=== PATIENT | male | born 1995 | race Caucasian/White ===

== ENCOUNTER 2017-08-09 02:26 | Emergency (ER) | payer OTHER ==
[~2017-08-09] VITALS: Ht 185.4 cm; Wt 63.5 kg
[2017-08-09] MEDS ORDERED: NYQUIL (02:41)
[2017-08-09] MEDS ORDERED: IBUPROFEN 200200 M1 PO (02:41)
[2017-08-09] MEDS ORDERED: KEFLEX500 M1 PO (02:47)
[2017-08-09 03:46] VITALS: BP 120/76
== END 2017-08-09 07:25 | disposition home or self-care (01) ==
LOC: ER 02:26
DX: S41.111A Laceration without foreign body of right upper arm, initial encounter (principal); Z88.4 Allergy status to anesthetic agent; X99.1XXA Assault by knife, initial encounter; Y93.89 Activity, other specified; Y92.89 Other specified places as the place of occurrence of the external cause; Y99.8 Other external cause status

== ENCOUNTER 2018-11-16 21:18 | Emergency (ER) | payer OTHER ==
[~2018-11-16] VITALS: Ht 182.9 cm; Wt 68.0 kg
[~2018-11-16 21:18] MED LIST: IBUPROFEN 200200 M1 PO; KEFLEX500 M1 PO; NYQUIL
[2018-11-16 22:13] LABS: URINE BILIRUBIN NEGATIVE (Negative); URINE BLOOD NEGATIVE (Negative); URINE CLARITY CLEAR; URINE COLOR YELLOW; URINE GLUCOSE-RANDOM* NEGATIVE (Negative); URINE KETONES NEGATIVE (Negative); URINE LEUKOCYTES NEGATIVE (Negative); URINE NITRITE NEGATIVE (Negative); URINE PROTEIN (DIPSTICK) NEGATIVE (Negative); URINE UROBILINOGEN 0.2 E.U./dl (0.2-1.0)
[2018-11-16 22:20] LABS: ABSOLUTE NEUTROPHILS 3.8 thou/uL (1.4-8.2); BASOPHILS 0.9 % (0.0-2.0); EOSINOPHILS 1.3 % (0.0-3.0); HEMATOCRIT 42.7 % (42.0-52.0); HEMOGLOBIN 14.8 gm/dL (14.0-18.0); LYMPHOCYTES 42.7 % (24.0-44.0); MCH 31.8 pg (26.0-34.0); MCHC 34.8 g/dL (28.0-37.0); MCV 91.5 fL (80.0-100.0); MONOCYTES 9.6 % (1.0-8.0); PLATELET COUNT 241 thou/uL (150-400); POLYS 45.5 % (36.0-66.0); RBC 4.66 mil/uL (4.50-6.00); RDW 13.9 % (10.5-14.5); WBC 8.3 thou/uL (4.0-11.0)
[2018-11-16 22:31] LABS: CALCIUM 9.2 mg/dL (8.5-10.1); CREATININE 0.8 mg/dL (0.7-1.3); POTASSIUM 3.5 mmol/L (3.5-5.1)
[2018-11-16 22:35] LABS: ALBUMIN 3.9 g/dL (3.4-5.0); TOTAL BILIRUBIN 0.5 mg/dL (<0.1-1.0); TOTAL PROTEIN 7.7 g/dL (6.4-8.2)
[2018-11-17] MEDS ORDERED: ZOFRAN ODT4 MG PO (01:23)
[2018-11-17] MEDS ORDERED: BENTYL 20 MG TA20 M1 PO (01:23)
[2018-11-17] MEDS ORDERED: HYDROCODONE-AP1 EAC6 PO (01:23)
[2018-11-17 01:30] VITALS: BP 99/60
== END 2018-11-17 01:50 | disposition home or self-care (01) ==
LOC: ER 21:18
PROVIDERS: Emergency Medicine
DX: R10.31 Right lower quadrant pain (principal); R11.2 Nausea with vomiting, unspecified; F17.200 Nicotine dependence, unspecified, uncomplicated; F41.9 Anxiety disorder, unspecified; Z88.4 Allergy status to anesthetic agent